=== PATIENT | female | born 1960 | race Two or more races ===

== ENCOUNTER → 2017-12-16 18:18 | Outpatient (CLI) | payer OTHER | END | disposition home or self-care (01) | LOC: D.MAMMO 10-06 14:00 | DX: R92.8 Other abnormal and inconclusive findings on diagnostic imaging of breast (principal) ==

== ENCOUNTER → 2018-08-04 11:16 | Outpatient (CLI) | payer MEDICAID | END | disposition home or self-care (01) | LOC: D.NM 11:00 | DX: R10.13 Epigastric pain (principal) ==

== ENCOUNTER → 2018-09-23 10:13 | Outpatient (CLI) | payer MEDICAID | END | disposition home or self-care (01) | LOC: D.RAD 10:13 | DX: M25.551 Pain in right hip (principal) ==